=== PATIENT | female | born 1960 | race Caucasian/White ===

== ENCOUNTER 2023-06-28 11:40 | Day surgery (SDC) | payer BC ==
[~2023-06-28] VITALS: Ht 162.6 cm; Wt 99.5 kg
[~2023-06-28 11:40] MED LIST: ATORVASTATIN CA20 MG PO; CELECOXIB200 MG PO; DULOXETINE HCL60 MG PO; GABAPENTIN300 MG PO; HYDROCHLOROTHIA25 MG PO; LEVOTHYROXINE75 MCG PO; LISINOPRIL10 MG PO; OXYCODONE HCL5 MG PO; SENNA LAX8.6 MG PO; TOPAMAX25 MG PO; VITAMIN D325 MCG PO; XARELTO10 MG PO
[2023-06-28 12:35] VITALS: BP 145/70
[2023-06-28 16:46] VITALS: BP 152/69
--- NOTE | 2023-06-28 17:16 | NUR ---
06/28/23 1716 Shyann Goode 1619 PT ARRIVED IN PACU SLEEPY. ABD SOFT AND PASSING FLATUS. 1630 DR AT BEDSIDE. ALL QUESTIONS ANSWERED. 1640 SITTING UP IN BED SIPPING ON WATER. 1645 GETTING DRESSED WITH STAND BY ASSIST. 1650 DC INSTRUCTIONS GIVEN. 1655 LEFT VIA W/C.
--- NOTE | 2023-06-29 09:08 | OR ---
[facility] [address], [place] [address] Signed DATE OF OPERATION: 06/28/2023 SURGEON: Rosanna Angela MD PREOPERATIVE DIAGNOSIS: Colon screening. POSTOPERATIVE DIAGNOSES: 1. Sigmoid and left-sided diverticulosis. 2. Small polyp rectosigmoid. PROCEDURE: Total colonoscopy to cecum with cold morcellation polypectomy x1. ANESTHESIA: Intravenous sedation; fentanyl 150 mcg, Versed 6 mg. PREOPERATIVE ANTIBIOTIC: Clindamycin 600 mg. INDICATION: A 62-year-old white woman, a patient of VAISHNAVI Lauren of [facility]. She is here for screening colonoscopy. She has no symptoms of bleeding, diarrhea or constipation and no family history of colon cancer. She understands the risk of bleeding, infection, and perforation related to colonoscopy and wished to proceed. 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 On that basis, clindamycin was given intravenously. FINDINGS: The prep was good. Complete colonoscopy was undertaken to the cecum with full intubation of the cecum. There was no evidence of colitis. She had numerous diverticula of the sigmoid and left colon and one very small polyp of the rectosigmoid which was excised. DESCRIPTION OF PROCEDURE: The patient was brought to the endoscopy suite and placed in the lateral decubitus position, given intravenous sedation to the point of slurred speech and nystagmus. Full cardiopulmonary monitoring was maintained. Digital rectal examination was normal. An Olympus video colonoscope was passed in the rectum and manipulated throughout the Electronically Signed By: ROSANNA ANGELA MD 06/29/23 0908 PATIENT NAME: HERSON MENDEZ OPERATIVE REPORT DATE OF : 58 REPORT #: [id number] PHYSICIAN: ROSANNA ANGELA MD PCP: SOPHIE TURNER- REPORT IS CONFIDENTIAL AND NOT TO BE RELEASED WITHOUT AUTHORIZATION [facility] [address], [place] [address] Signed colon noting numerous diverticula of the sigmoid and left colon. The scope was passed beyond this ultimately to the cecum with full intubation of the cecum was accomplished. The scope was withdrawn and careful examination throughout showed only diverticulosis of the left colon and sigmoid and in the rectosigmoid a small polyp, this was excised with cold morcellation technique. Retroflexed view showed no other abnormality. The scope was removed and the patient was taken to the recovery room in good condition. CONCLUDING DIAGNOSES: Small polyp x1 and diverticulosis. PLAN: Recommend high-fiber diet and repeat colonoscopy in 5 years, sooner if clinically indicated. She will return to the ongoing care of VAISHNAVI Lauren at [facility]. MD SOPHIE Gibbons/MAYNOR /[id number] cc: VAISHNAVI Lauren of [facility] Copies: ~ Electronically Signed By: ROSANNA ANGELA MD 06/29/23 0908 PATIENT NAME: HERSON MENDEZ OPERATIVE REPORT DATE OF : 58 REPORT #: [id number] PHYSICIAN: ROSANNA ANGELA MD PCP: SOPHIE TURNER [facility] REPORT IS CONFIDENTIAL AND NOT TO BE RELEASED WITHOUT AUTHORIZATION
== END 2023-06-28 16:55 | disposition home or self-care (01) ==
LOC: OPS 11:40 → DS 11:41 → OPS 13:00
PROVIDERS: ATTEND Surgery
PROC: 0DBN8ZX Excision of Sigmoid Colon, Via Natural or Artificial Opening Endoscopic, Diagnostic (ICD-10-PCS; 2023-06-28)
PROC: 0DBG8ZX Excision of Left Large Intestine, Via Natural or Artificial Opening Endoscopic, Diagnostic (ICD-10-PCS; principal; 2023-06-28 13:00)
DX: Z12.11 Encounter for screening for malignant neoplasm of colon (principal); K63.5 Polyp of colon; K57.30 Diverticulosis of large intestine without perforation or abscess without bleeding; I10 Essential (primary) hypertension; Z78.0 Asymptomatic menopausal state; Z96.659 Presence of unspecified artificial knee joint; Z98.890 Other specified postprocedural states
CPT/HCPCS: 99153; G0500; J2250; J3010; J7121; U0002